=== PATIENT | male | born 1950 | race Caucasian/White ===

== ENCOUNTER 2018-01-03 08:57 | Inpatient (IN) | payer OTHER ==
[~2018-01-03] VITALS: Ht 172.7 cm; Wt 97.5 kg
[~2018-01-03 08:57] MED LIST: ASPIRIN EC81 M1 PO; ATORVASTATIN CA10 MG PO; AVALIDE 12.5 MG1 TAB PO; CLOPIDOGREL75 MG PO; COZAAR 25MG TAB25 MG PO; HEPARIN 2525000 UNI1 IV; HYDRODIURIL 112.5 M1 PO; LEVOTHYROXIN0.125 M1 PO; LISINOPRIL10 MG PO; LOVASTATIN40 M1 PO; LOVASTATIN40 MG PO; MASON NATURAL2000 IU PO; NIFEDIPINE ER30 M2 PO; Nitro-Bid TOP; PLAVIX 75MG TAB75 MG PO; SYNTHROID100 MCG PO; VITAMIN B-122000 MC1 PO; VITAMIN B12100 MC1 PO; VITAMIN B121000 MC1 PO; VITAMIN D1000 IU PO; ZETIA10 M1 PO
[2018-01-03] MEDS ORDERED: COZAAR25 M1 PO (10:41)
[2018-01-03] MEDS ORDERED: COZAAR50 M1 PO (10:42)
[2018-01-03] MEDS ORDERED: VITAMIN D31000 UNI2 PO (10:43)
[2018-01-03] MEDS ORDERED: CLOPIDOGREL75 M1 PO (10:43)
--- NOTE | 2018-01-03 11:06 | ED CARDIAC/CP/PALPITATIONS ---
History of Present Illness General Chief Complaint: General Adult Stated Complaint: LT ARM THROBBING Source: patient, old records Exam Limitations: no limitations Vital Signs & Intake/Output Vital Signs & Intake/Output Vital Signs Date Time Temp Pulse Resp B/P B/P Pulse O2 O2 Flow FiO2 Mean Ox Delivery Rate 01/03 1524 97.4 61 18 137/100 97 01/03 1109 97 Room Air Room Air 01/03 0904 96.4 87 20 146/100 98 Room Air Allergies Coded Allergies: peanut (Severe, ?DIFFICULTY 08/29/16) Reconcile Medications Aspirin (Ecotrin*) 81 MG TABLET.DR 2 TAB PO DAILY HEART HEALTH (Reported) Cholecalciferol (Vitamin D3) 1,000 UNIT TABLET 1 TAB PO DAILY VITAMIN SUPPORT (Reported) Clopidogrel Bisulfate (Clopidogrel) 75 MG TABLET 1 TAB PO DAILY BLOOD THINNER (Reported) Cyanocobalamin (Vitamin B-12) (Vitamin B-12) 2,000 MCG TABLET 1 TAB PO DAILY SUPPLEMENT (Reported) Ezetimibe (Zetia) 10 MG TABLET 1 TAB PO DAILY CHOLESTEROL (Reported) Levothyroxine Sodium (Synthroid) 100 MCG TABLET 1 TAB PO DAILY hypothyroidism Take Synthroid on an empty stomach, 30 minutes before eating Losartan Potassium (Cozaar) 25 MG TABLET 1 TAB PO DAILY heart (Reported) Losartan Potassium (Cozaar) 50 MG TABLET 1 TAB PO QPM HEART (Reported) Lovastatin 40 MG TABLET 1 TAB PO DAILY CHOLESTEROL (Reported) with food Nifedipine (Nifedipine ER) 30 MG TAB.ER.24 1 TAB PO DAILY HEART (Reported) Triage Note: PT TO ED C/O LEFT ARM PAIN SINCE YESTERDAY. DENIES ANY INJURY. DENIES C/P. DECLINING MEDS IN TRIAGE. Triage Nurses Notes Reviewed? yes Onset: Abrupt Duration: constant Timing: recent history Quality/Severity: moderate, aching HPI: Patient is a 67-year-old male with a past medical history significant for coronary artery disease, 2 non-STEMI's, X 4 CARDIAC STENT ON PLAVIX, hypertension, pacemaker placement who presented to emergency room seen at yesterday at approximately 8 AM while taking a shower he had acute onset of left arm persistent pain described as dull and achy in nature and which symptoms still present after 24 hours where he denies any chest pain cough shortness of breath, hemoptysis leg swelling fever chills or neck pain jaw pain diaphoresis light headed sensation nausea or vomiting extremity swelling paresthesia or weakness. Patient is compliant prior to arrival 2, 81 mg of aspirin Patient denies any mechanism of injury or trauma to the left arm Past History Travel History Traveled to [place] past 21 day No Medical History Any Pertinent Medical History? 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 No Review of Systems Review of Systems Constitutional: Reports: no symptoms. EENTM: Reports: no symptoms. Respiratory: Reports: see HPI. Denies: cough, hemoptysis, short of breath. Cardiovascular: Reports: see HPI. Denies: chest pain, edema, peripheral edema. GI: Reports: no symptoms. Genitourinary: Reports: no symptoms. Musculoskeletal: Reports: see HPI, muscle pain. Skin: Reports: no symptoms. Neurological/Psychological: Reports: no symptoms. Hematologic/Endocrine: Reports: no symptoms. Immunologic/Allergic: Reports: no symptoms. All Other Systems: Reviewed and Negative Physical Exam Physical Exam General Appearance: no apparent distress, alert, comfortable Head: atraumatic Eyes: Bilateral: normal appearance. Ears, Nose, Throat: hearing grossly normal Neck: normal inspection, supple Respiratory: normal breath sounds, chest non-tender, no respiratory distress Cardiovascular: regular rate/rhythm Peripheral Pulses: 2+ radial (L) Gastrointestinal: normal bowel sounds, soft, non-tender Rectal: normal exam, normal rectal tone, heme negative stool Extremities: normal inspection, normal capillary refill, normal range of motion Neurologic/Psych: no motor/sensory deficits, awake, alert, oriented x 3, normal gait Skin: intact, normal color, warm/dry Core Measures ACS in differential dx? Yes CVA/TIA Diagnosis No Sepsis Present: No Sepsis Focused Exam Completed? No Progress Differential Diagnosis: AMI, aortic dissection, atrial fibrillation, cholecystitis, CHF/pulm edema, costochondritis, hyperkalemia, hypovolemia, hyperthyroid, hyperventilation, intracranial hemorrhage, musculoskeletal pain, myocarditis, pancreatitis, pericarditis, pneumonia, pneumothorax, PSVT, pulmonary embolism, PUD/GERD, PVCs/PACs, respiratory failure, sepsis, unstable angina, V-fib/V-Tach Plan of Care: Orders Procedure Date/time Status Heart Healthy Diet 01/03 D Active Patient Data 01/03 1534 Active Misc Message 01/03 1456 Active ED Holding Orders 01/03 1456 Active Admit to inpatient 01/03 1456 Active Vital Signs 01/03 1456 Active Code Status 01/03 1456 Active TROPONIN LEVEL 01/03 1430 Complete EKG 01/03 1430 Active Telemetry/Blood Bank Attendant 01/03 1035 Active TROPONIN LEVEL 01/03 1035 Complete CBC WITHOUT DIFFERENTIAL 01/03 1035 Complete BASIC METABOLIC PANEL 01/03 1035 Complete EKG 01/03 0906 Active Current Medications Sig/Mely Start time Last Medication Dose Stop Time Status Admin Heparin Sodium 25,000 UNIT Q24H 01/03 1445 AC (Porcine) (Heparin) Sodium Chloride 500 ML Laboratory Tests 01/03/18 1458: Troponin I < 0.01 01/03/18 1102: Anion Gap 12, Estimated GFR > 60, BUN/Creatinine Ratio 21.0, Glucose 91, Calcium 10.0, Troponin I < 0.01, CBC w Diff NO MAN DIFF REQ, RBC 5.59, MCV 84.6, MCH 28.5, MCHC 33.8, RDW 13.1, MPV 8.1, Gran % 68.3, Lymphocytes % 20.8, Monocytes % 5.9, Eosinophils % 4.1, Basophils % 0.9, Absolute Granulocytes 4.8, Absolute Lymphocytes 1.5, Absolute Monocytes 0.4, Absolute Eosinophils 0.3, Absolute Basophils 0.1 Patient on initial examination was resting comfortably bedside rabbit dresser placed denies any cardiovascular etiology of symptoms complains only of left arm pain. No concerns of DVT or trauma PT INITIAL EKG, TROPONIN AND LABS UNREMARKABLE STILL C/O LEFT ARM 3/[address] Elias who advised patient to be administered nitroglycerin and received second set cardiac enzymes and he advised the patient still has persistent symptoms of left arm pain that patient will be advised to be admitted. After nitroglycerin was administered patient 10 minutes after was reevaluated and states his symptoms have completely resolved, Second TROPONIN AND EKG will be ordered after 3-1/2 hours FROM INITIAL After nitroglycerin was administered patient had exacerbation of his left arm pain Dr. Elias evaluated patient in the emergency room and advised patient to be administered heparin and to be admitted for concerns of ACS Diagnostic Imaging: Viewed by Me: Radiology Read. Radiology Impression: no acute abnormality, no fracture Initial ED EKG: ATRIAL PACED COMPLEX 73 BPM Prior EKG: unchanged Comments: PATIENT: YARON MACKENZIE PRESENT AGE: 67 PATIENT ACCOUNT NO: [id number] : 50 LOCATION: [facility] ORDERING PHYSICIAN: Mick BOOTH SERVICE DATE: 01/03/18 EXAM TYPE: RAD - XRY-CHEST XRAY, TWO VIEWS EXAMINATION: XR CHEST CLINICAL INFORMATION: Angina. COMPARISON: Chest x-ray 05/21/2017 TECHNIQUE: 2 views of the chest were obtained. 2:39 PM FINDINGS: No change in pacemaker lead position in the right atrium and right ventricle. Heart size is normal. The cardiac and mediastinal contours are normal. Lungs are clear. No pulmonary vascular congestion. No pleural effusion or pneumothorax. IMPRESSION: No acute abnormality of chest. DICTATED BY: Keron Bailey MD DATE/TIME DICTATED:01/03/181510 SATELLITE TELEVISION INSTALLER:KALYN DATE/TIME TRANSCRIBED:01/03/181510 Departure Departure Disposition: STILL A PATIENT Condition: Stable Clinical Impression Primary Impression: Angina at rest Secondary Impressions: Arm pain, left Referrals: Mary FELDER,Terry Wilkins (PCP/Family) Departure Forms: Customer Survey General Discharge Information Admission Note Spoke With: Curt FELDER PHD,Dante Cormier Documentation of Exam: Documentation of any treatments & extenuating circumstances including Concerns Regarding Discharge (functional status, medication knowledge or non-compliance, living conditions, etc.) that warrant an admission rather than observation: [ Patient requires telemetry monitoring repeat cardiac enzymes repeat EKG repeat vasodilators possible cardiac catheterization IV heparin for concerns of angina at rest and rule out ACS] Critical Care Note Critical Care Note Critical Care Time: non-applicable
[2018-01-03 11:13] LABS: ABSOLUTE BASOPHIL COUNT 0.1 /CUMM (0.0-0.2); ABSOLUTE EOSINOPHIL COUNT 0.3 /CUMM (0.0-0.7); ABSOLUTE GRANULOCYTE CT 4.8 /CUMM (1.4-6.5); ABSOLUTE LYMPH COUNT 1.5 /CUMM (1.2-3.4); ABSOLUTE MONOCYTE COUNT 0.4 /CUMM (0.10-0.60); BASOPHIL % 0.9 % (0.0-2.0); EOSINOPHIL % 4.1 % (0-5); GRANULOCYTE % 68.3 % (42.2-75.2); HEMATOCRIT 47.2 % (42-52); MEAN CORPUSCULAR HGB 28.5 PG (27.0-31.0); MEAN CORPUSCULAR HGB CONC 33.8 G/DL (33.0-37.0); MEAN CORPUSCULAR VOLUME 84.6 FL (80.0-94.0); MEAN PLATELET VOLUME 8.1 FL (7.4-10.4); PLATELET COUNT 209 /CUMM (130-400); RBC DISTRIBUTION WIDTH 13.1 % (11.5-14.5); RED BLOOD CELL CT 5.59 /CUMM (4.70-6.10); WHITE BLOOD CELL COUNT 7.1 /CUMM (4.8-10.8)
--- NOTE | 2018-01-03 15:16 | RADIOLOGY REPORT ---
EXAMINATION: XR CHEST CLINICAL INFORMATION: Angina. COMPARISON: Chest x-ray 05/21/2017 TECHNIQUE: 2 views of the chest were obtained. 2:39 PM FINDINGS: No change in pacemaker lead position in the right atrium and right ventricle. Heart size is normal. The cardiac and mediastinal contours are normal. Lungs are clear. No pulmonary vascular congestion. No pleural effusion or pneumothorax. IMPRESSION: No acute abnormality of chest.
--- NOTE | 2018-01-03 15:47 | History & Physical ---
Ulices FELDER,Joceline 01/03/18 1547: General Information and HPI MD Statement: I have seen and personally examined YARON MACKENZIE and documented this H&P. The patient is a 67 year old M who presented with a patient stated chief complaint of [left arm pain]. Source of Information: patient, old records Exam Limitations: no limitations History of Present Illness: Patient is a 67-year-old male with past medical history of coronary artery disease status post NSTEMI and 4 stents (2015 - 2 stents, 2016- 2 stents) currently on aspirin and plavix, symptomatic bradycardia s/p pacemaker placement , HTN, ECHO in 2016 showing stage 1 diastolic dysfunction, dyslipidemia, hypothyroidism presenting this admission with left arm pain. Patient states that he has been experiencing left arm pain which started 1 day prior to admission in the morning while he was taking a shower. Patient describes the pain as a persistent dull and aching pain that radiates down his left arm. Patient states the pain is persistent since yesterday which prompted him to come to the emergency room today. Patient notes that the pain when it first started was an 8 out of 10 in severity. Patient did not try taking any medication to relieve the pain. Patient notes that the pain today was 3 out of 10 in severity and was relieved by nitroglycerin in the ED. Patient denies any chest pain, pain radiating to neck or back. Denies diaphoresis, nausea/vomiting , shortness of breath, lower extremity swelling, fever/chills, lightheadedness or dizziness. Patient states that he has had this type of pain in the past in 2014 when he was admitted for an NSTEMI and had 2 stents placed and in 2016 also for an STEMI and additional 2 stents placed at [facility]. Patient also notes that he had a pacemaker placed in 2016 for symptomatic bradycardia. Patient's primary care is Dr. Hernandez. Patient's voice pathologist is Dr. Elias with whom he had his 6 month follow-up on 01/07. In the ED patient received nitroglycerin 0.4 mg sublingual 1 and was started on IV heparin drip Allergies/Medications Allergies: Coded Allergies: peanut (Severe, ?DIFFICULTY 08/29/16) Home Med list Aspirin (Ecotrin*) 81 MG TABLET.DR 2 TAB PO DAILY HEART HEALTH (Reported) Cholecalciferol (Vitamin D3) 1,000 UNIT TABLET 1 TAB PO DAILY VITAMIN SUPPORT (Reported) Clopidogrel Bisulfate (Clopidogrel) 75 MG TABLET 1 TAB PO DAILY BLOOD THINNER (Reported) Cyanocobalamin (Vitamin B-12) (Vitamin B-12) 2,000 MCG TABLET 1 TAB PO DAILY SUPPLEMENT (Reported) Ezetimibe (Zetia) 10 MG TABLET 1 TAB PO DAILY CHOLESTEROL (Reported) Levothyroxine Sodium (Synthroid) 100 MCG TABLET 1 TAB PO DAILY hypothyroidism Take Synthroid on an empty stomach, 30 minutes before eating Losartan Potassium (Cozaar) 25 MG TABLET 1 TAB PO DAILY heart (Reported) Losartan Potassium (Cozaar) 50 MG TABLET 1 TAB PO QPM HEART (Reported) Lovastatin 40 MG TABLET 1 TAB PO DAILY CHOLESTEROL (Reported) with food Nifedipine (Nifedipine ER) 30 MG TAB.ER.24 1 TAB PO DAILY HEART (Reported) Past History Travel History Traveled to [place] past 21 day No Medical History Neurological: NONE EENT: NONE Cardiovascular: hypertension, hyperlipidemia, NSTEMI X 2 bradycardia PACEMAKER CARDIAC STENTS X 4 Respiratory: NONE Gastrointestinal: NONE Hepatic: NONE Renal: NONE Musculoskeletal: NONE Psychiatric: NONE Endocrine: hypothyroidism Blood Disorders: NONE Cancer(s): NONE 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 spouse Services at Home: None Primary Language: Japanese ETOH Use: denies use Illicit Drug Use: denies illicit drug use Living Will? no Power of Cylinder Honer/HCP? no Functional Ability ADLs Independent: dressing, eating, toileting, bathing. Ambulation: independent IADLs Independent: shopping, housework, finances, food prep, telephone, transportation , medication admin. Review of Systems Review of Systems Constitutional: Reports: no symptoms. Cardiovascular: Reports: see HPI. Respiratory: Reports: no symptoms. GI: Reports: no symptoms. Genitourinary: Reports: no symptoms. Musculoskeletal: Reports: no symptoms. Skin: Reports: no symptoms. Neurological/Psychological: Reports: no symptoms. Hematologic/Endocrine: Reports: no symptoms. Immunologic/Allergic: Reports: no symptoms. Exam & Diagnostic Data Last 24 Hrs of Vital Signs/I&O Vital Signs Date Time Temp Pulse Resp B/P B/P Pulse O2 O2 Flow FiO2 Mean Ox Delivery Rate 01/03 1524 97.4 61 18 137/100 97 01/03 1109 97 Room Air Room Air 01/03 0904 96.4 87 20 146/100 98 Room Air Intake & Output 01/03 1600 01/03 0800 01/03 0000 Intake Total Output Total Balance Patient 215 lb Weight Weight Reported by Patient Measurement Method Physical Exam General Appearance Alert, Oriented X3, Cooperative, No Acute Distress Skin Temp/Moisture Exam: Warm/Dry HEENT Atraumatic, PERRLA, EOMI, Mucous Membr. moist/pink Cardiovascular Regular Rate, Normal S1, Normal S2 Lungs Clear to Auscultation, Normal Air Movement Abdomen Normal Bowel Sounds, Soft, No Tenderness Neurological Normal Gait, Normal Speech, Cranial Nerves 3-12 NL Extremities No Clubbing, No Cyanosis, No Edema, Normal Pulses, No Tenderness/ Swelling Last 24 Hrs of Labs/Koby: Laboratory Tests 01/03/18 1458: Troponin I < 0.01 01/03/18 1102: Anion Gap 12, Estimated GFR > 60, BUN/Creatinine Ratio 21.0, Glucose 91, Calcium 10.0, Troponin I < 0.01, CBC w Diff NO MAN DIFF REQ, RBC 5.59, MCV 84.6, MCH 28.5, MCHC 33.8, RDW 13.1, MPV 8.1, Gran % 68.3, Lymphocytes % 20.8, Monocytes % 5.9, Eosinophils % 4.1, Basophils % 0.9, Absolute Granulocytes 4.8, Absolute Lymphocytes 1.5, Absolute Monocytes 0.4, Absolute Eosinophils 0.3, Absolute Basophils 0.1 Diagnostic Data EKG Results Atrial-paced with HR: 72, LAD, 1st degree AV Block, Qtc: 449 CXR Results No acute pathology. Assessment/Plan Assessment: Patient is a 67-year-old male with past medical history of coronary artery disease status post NSTEMI and 4 stents (2015 - 2 stents, 2016- 2 stents) currently on aspirin and plavix, symptomatic bradycardia s/p pacemaker placement , HTN, ECHO in 2016 showing stage 1 diastolic dysfunction, dyslipidemia, hypothyroidism presenting this admission with left arm pain. Will be admitted to telemetry for management of followin. Unstable angina Patient has an extensive cardiac history with multiple MIs in the past requiring 4 stents and history of symptomatic bradycardia requiring pacemaker placement. - Will admit to telemetry - Started on IV heparin drip - Serial EKG and troponins - Nitroglycerin patch were pain - Oxygen supplementation as needed - Continue aspirin and Plavix - Continue atorvastatin - Cardiology is on board. We'll continue to follow recommendations 2. History of hypertension - Continue losartan and nifedipine 3. History of hypothyroidism - Continue levothyroxine DVT prophylaxis: On IV heparin Code: Full code Diet: Heart healthy diet As Ranked By This Provider Problem List: 1. Arm pain, left 2. Angina at rest Core Measures/Misc (07/29) Acute Coronary Syndrome ACS Diagnosis: No Congestive Heart Failure Congestive Heart Failure Diagnosis No Cerebrovascular Accident CVA/TIA Diagnosis: No VTE (View Protocol) VTE Risk Factors Age>40 No Mechanical VTE Prophylaxis d/t N/A MechProphylax Ordered No VTE Pharm Prophylaxis d/t NA PharmProphylax ordered Sepsis (View protocol) Sepsis Present: No Thomas Sanders 01/03/18 1701: Resident Review Statement Resident Statement: examined this patient, discussed with supply chain intern, agreed with supply chain intern, discussed with family, reviewed EMR data (avail), discussed with nursing , discussed with case mgmt, reviewed images, amended to note Other Findings: This is a 67-year-old male with past medical history significant for coronary artery disease, NSTEMI, 4 stents placement, on aspirin and Plavix, sinus sick syndrome, bradycardia status post pacemaker placement in 07/2015, hypothyroidism, hypertension presented to ED for evaluation of chest pain. Patient reports left-sided chest pain, left arm pain since last evening. He thought it might come down. He reports left arm pain, 3 out of 10, nonradiating , sharp, not associated with any shortness of breath, palpitations, nausea, vomiting, diaphoresis. He continued to have left arm pain even this morning, which prompted him to come to the emergency room. Review of systems negative for any fever, productive cough, chills, palpitations , chest pain, nausea, vomiting, abdominal pain, change in bladder or bowel habits. His only complaint in the emergency room is left arm pain, subsided with nitroglycerin tablet. Of note patient has extensive cardiac history, had heart attack in 2014 with EKG changes, cardiac cath Status post 2 stents placement. Again he had one heart attack in 2016, transferred to [facility] for cardiac cath and stent placement. Echocardiogram in August 2016 showed normal ejection fraction and stage I diastolic dysfunction. Patient reports sick sinus syndrome and bradycardia in 2014, status post pacemaker placement by Dr. Elias. He never smoked, denied alcohol abuse, illicit drug abuse. He follows up with PCP and voice pathologist regularly. He is independent of all his activities. Vitals within normal limits Exam within normal limits Lab CBCs and BP normal. 2 sets of troponin normal. Chest x-ray within normal limits EKG showed atrial paced rhythm, left axis deviation 1. Chest pain/unstable angina patient has extensive cardiac history, had heart attack in 2014 with EKG changes , cardiac cath Status post 2 stents placement. Again he had one heart attack in 2015, transferred to [facility] for cardiac cath and stent placement. Echocardiogram in August 2016 showed normal ejection fraction and stage I diastolic dysfunction. Patient reports sick sinus syndrome and bradycardia in 2014, status post pacemaker placement by Dr. Elias. Patient now presented with chest pain. Resolved with nitroglycerin. Vitals, labs normal he is hemodynamically stable * Admit to telemetry for further monitoring * Continuous telemetry monitoring * monitor vitals every shift * Renal troponin and EKG * Continue IV heparin drip * Nitroglycerin patch daily * Continue aspirin, Plavix * Continue statin * Follow cardiology recommendations Hypothyroidism continue levothyroxine Hypertension continue losartan and nifedipine He is full code DVT prophylaxis on IV heparin Heart healthy diet
--- NOTE | 2018-01-03 18:06 | Cons- Cardiology ---
General Information and HPI Consulting Request Date of Consult: 01/03/18 Requested By: Curt FELDER PHD,Dante Cormier History of Present Illness: Jb is a 67 year old male with history of hypertension, dyslipidemia and coronary artery disease s/p IL with PCI to his LAD and OM. He is also s/p a permanent pacemaker for symptomatic bradycardia. Today, Jb noted a left arm paresthesia and discomfort that was very similar, but perhaps less intense, to the discomfort he had at the time of his IL. There was equivocal exacerbation with activity and no complete relief with rest. He did feel that NTG, given in the ER, helped. There is no associated nausea, vomiting or diaphoresis. He also denies shortness of breath, lightheadedness or palpitations. Despite prolonged pain, his first set of cardiac enzymes are normal and his ECG is unchanged. At baseline, on rare occasion Jb will experience some shortness of breath lying down which improves with an inhaler. Her otherwise denies any chest discomfort, lightheadedness or palpitations and is an active individual. A stress test showed an EF of 47% with mild inferior wall hypokinesis and a small partial fixed inferior defect but no ischemia. His pacemaker is serving him well and his headaches have resolved. To review this patient's prior cardiac history, Jb had been doing well in general, except for bradycardia, and he was anticipating a pacemaker for symptomatic bradycardia. We stopped his Plavix in anticipation of this procedure and after a week off this medication he noted a moderate chest pressure radiating to his right arm associated with shortness of breath, nausea and lightheadedness. He did rule in for a NSTEMI. We therefore transferred him to the [facility] where a cardiac catheterization disclosed a patent LAD and LCX but his RCA, which is a dominant vessel, had a severe stenosis with thrombus. He received two bare metal 2.5mm Integrity stents to the distal RCA and posterolateral branch and had thrombus extraction. He was placed on Integrelin and did well. He continued to display evidence of bradycardia however. During his hospital follow up he had no chest discomfort but did have T wave inversions in the inferior and lateral leads that were unchanged from when he was a the HSR. Jb is now s/p a [employer] MRI safe dual chamber permanent pacemaker placement. A pacemaker interogation showed an atrial paced rhythm. Allergies/Medications Allergies: Coded Allergies: peanut (Severe, ?DIFFICULTY 08/29/16) Home Med List: Aspirin (Ecotrin*) 81 MG TABLET.DR 2 TAB PO DAILY HEART HEALTH (Reported) Cholecalciferol (Vitamin D3) 1,000 UNIT TABLET 1 TAB PO DAILY VITAMIN SUPPORT (Reported) Clopidogrel Bisulfate (Clopidogrel) 75 MG TABLET 1 TAB PO DAILY BLOOD THINNER (Reported) Cyanocobalamin (Vitamin B-12) (Vitamin B-12) 2,000 MCG TABLET 1 TAB PO DAILY SUPPLEMENT (Reported) Ezetimibe (Zetia) 10 MG TABLET 1 TAB PO DAILY CHOLESTEROL (Reported) Levothyroxine Sodium (Synthroid) 100 MCG TABLET 1 TAB PO DAILY hypothyroidism Take Synthroid on an empty stomach, 30 minutes before eating Losartan Potassium (Cozaar) 25 MG TABLET 1 TAB PO DAILY heart (Reported) Losartan Potassium (Cozaar) 50 MG TABLET 1 TAB PO QPM HEART (Reported) Lovastatin 40 MG TABLET 1 TAB PO DAILY CHOLESTEROL (Reported) with food Nifedipine (Nifedipine ER) 30 MG TAB.ER.24 1 TAB PO DAILY HEART (Reported) Review of Systems Review of Systems: A 12 point review of systems is unremarkable. Past History Travel History Traveled to [place] past 21 day No Medical History Neurological: NONE EENT: NONE Cardiovascular: hypertension, hyperlipidemia, NSTEMI X 2 bradycardia PACEMAKER CARDIAC STENTS X 4, pacemaker for symptomatic bradycardia Respiratory: NONE Gastrointestinal: NONE Hepatic: NONE Renal: NONE Musculoskeletal: NONE Psychiatric: NONE Endocrine: hypothyroidism Blood Disorders: NONE Cancer(s): NONE SPECIALTIES OPERATOR/Reproductive: NONE Surgical History Surgical History: ROTATOR CUFF pacemaker cardiac stents Family History Relations & Conditions If Any: BROTHER Relation not specified for: FH: heart disease Family History Reviewed? Brother at 50 during heart surgery Psychosocial History Who Do You Live With? spouse Services at Home: None Primary Language: Frisian ETOH Use: heavy use Illicit Drug Use: denies illicit drug use Living Will? no Power of Plant Hr Manager/HCP? no Functional Ability ADLs Independent: dressing, eating, toileting, bathing. Ambulation: independent IADLs Independent: shopping, housework, finances, food prep, telephone, transportation , medication admin. Exam & Diagnostic Data Vital Signs and I&O Vital Signs Date Time Temp Pulse Resp B/P B/P Pulse O2 O2 Flow FiO2 Mean Ox Delivery Rate 01/03 1735 97.8 62 16 136/96 100 Room Air 01/03 1524 97.4 61 18 137/100 97 01/03 1109 97 Room Air Room Air 01/03 0904 96.4 87 20 146/100 98 Room Air Intake & Output 01/03 1600 01/03 0800 01/03 0000 01/02 1600 01/02 0800 01/02 0000 Intake Total Output Total Balance Patient 215 lb Weight Weight Reported by Patient Measurement Method Physical Exam: General: WD/WN male in NAD; alert and oriented x 3 HEENT: NC/AT, PERRL, EOMI Neck: no JVD, no carotid bruit Heart: RRR w/o murmur Lungs: clear bilaterally Abdomen: soft, NT, +ve bowel sounds Extremities: no edema Assessment/Plan Assessment/Plan * This patient has noted a prolonged episode of left arm discomfort that is very reminiscent of the discomfort he had during his IL. There is perhaps some exertional component to it and clear relief with NTG. We will treat as unstable angina and ruled out for an IL although a musculoskeletal pain cannot be excluded. Continue aspirin and Plavix and begin IV heparin. * Follow three sets of cardiac enzymes. * Will risk stratify with a treadmill nuclear stress test in the morning. Consult Acknowledgment - Thank you for your consult request.
[2018-01-03 19:45] VITALS: BP 168/100
[2018-01-03 23:02] VITALS: BP 164/84
[2018-01-04] VITALS: BP 140/94
[2018-01-04 02:34] LABS: PTT 65 SEC (25-37)
[2018-01-04 07:01] VITALS: BP 156/94
--- NOTE | 2018-01-04 08:10 | PN- Housestaff ---
Subjective Follow-up For: Left arm pain Subjective: Patient was seen and examined today. Patient denies any chest pain, arm pain, n/ v, diaphoresis, palpitations, dizziness, lightheadedness. Patient states he has been walking around with no discomfort or return of the pain. No acute events overnight. Review of Systems Constitutional: Reports: no symptoms. Objective Last 24 Hrs of Vital Signs/I&O Vital Signs Date Time Temp Pulse Resp B/P B/P Pulse O2 O2 Flow FiO2 Mean Ox Delivery Rate 01/04 0946 74 150/90 01/04 0944 70 150/90 01/04 0701 98.6 63 18 156/94 96 Room Air 01/04 0000 72 140/94 01/03 2302 97.8 65 18 164/84 98 Room Air 01/03 2047 Room Air 01/03 2039 71 178/110 01/03 1945 98.0 66 16 168/100 99 Room Air 01/03 1735 97.8 62 16 136/96 100 Room Air 01/03 1524 97.4 61 18 137/100 97 Intake & Output 01/04 1600 01/04 0800 01/04 0000 Intake Total 460 400 Output Total Balance 460 400 Intake, IV 160 Intake, Oral 300 400 Patient 215 lb Weight Weight Reported by Patient Measurement Method Physical Exam General Appearance: Alert, Oriented X3, Cooperative, No Acute Distress Skin Temp/Moisture Exam: Warm/Dry HEENT: Atraumatic, PERRLA, EOMI, Mucous Membr. moist/pink Cardiovascular: Regular Rate, Normal S1, Normal S2, No Murmurs Lungs: Clear to Auscultation, Normal Air Movement Abdomen: Normal Bowel Sounds, Soft, No Tenderness Neurological: Normal Gait, Normal Speech, Cranial Nerves 3-12 NL Extremities: No Clubbing, No Cyanosis, No Edema, Normal Pulses, No Tenderness/ Swelling Current Medications: Current Medications Sig/Mely Start time Last Medication Dose Route Stop Time Status Admin Acetaminophen 650 MG Q6P PRN 01/03 1630 DCD PO Aspirin Buffered 162 MG DAILY 01/04 1000 DCD 01/04 PO 0943 Atorvastatin Calcium 40 MG 1700 01/03 1700 DCD PO Cholecalciferol 1,000 IU DAILY 01/03 161 DCD 01/04 PO 0943 Clopidogrel Bisulfate 0 .STK-MED ONE 01/03 1815 DC PO Clopidogrel Bisulfate 75 MG DAILY 01/03 1619 DCD 01/04 PO 0943 Cyanocobalamin 1,000 MCG DAILY 01/03 1620 DCD 01/04 PO 0943 Ezetimibe 10 MG DAILY 01/03 1620 DCD 01/04 PO 0943 Heparin Sodium 3,000 UNIT ONCE ONE 01/04 1310 DC 01/04 (Porcine) IV 01/04 1311 1310 Heparin Sodium 0 .STK-MED ONE 01/03 1815 DC (Porcine) .ROUTE Heparin Sodium 25,000 UNIT Q24H 01/03 1445 DCD 01/03 (Porcine) IV 1818 Sodium Chloride 500 ML Levothyroxine Sodium 0.1 MG DAILY AC 01/04 0700 DCD 01/04 PO 0545 Losartan Potassium 50 MG QAM 01/04 1000 DCD 01/04 PO 0944 Losartan Potassium 25 MG QPM 01/03 2200 DCD 01/03 PO 2039 Nifedipine 30 MG DAILY 01/04 1000 DCD 01/04 PO 0946 Nitroglycerin 0.4 MG DAILY 01/03 1715 DCD 01/04 TOP 0943 Patient Medication 1 ED ONE ONE 01/04 1415 MN Teaching ED 01/04 1416 Last 24 Hrs of Lab/Koby Results Last 24 Hrs of Labs/Mics: Laboratory Tests 01/04/18 1220: APTT 60 H 01/04/18 0610: Anion Gap 10, Estimated GFR > 60, BUN/Creatinine Ratio 20.0, CBC w Diff NO MAN DIFF REQ, RBC 4.94, MCV 84.2, MCH 28.7, MCHC 34.1, RDW 13.7, MPV 8.5, Gran % 61.8, Lymphocytes % 25.4, Monocytes % 6.8, Eosinophils % 5.4 H, Basophils % 0.6 , Absolute Granulocytes 4.2, Absolute Lymphocytes 1.7, Absolute Monocytes 0.5, Absolute Eosinophils 0.4, Absolute Basophils 0 01/04/18 0030: APTT 65 H 01/03/18 2100: Troponin I < 0.01 01/03/18 1458: Troponin I < 0.01 Assessment/Plan Assessment: Patient is a 67-year-old male with past medical history of coronary artery disease status post NSTEMI and 4 stents (2015 - 2 stents, 2016- 2 stents) currently on aspirin and plavix, symptomatic bradycardia s/p pacemaker placement , HTN, ECHO in 2016 showing stage 1 diastolic dysfunction, dyslipidemia, hypothyroidism presenting this admission with left arm pain. Patient's arm pain has resolved today. Patient is currently asymptomatic. Patient's EKG and trops have been negative x3 and he has had no events on the tele monitor. Patient seen by Dr. Elias. He will be discharged home today to follow up closely with Dr. Elias for an outpatient stress test. Patient was given nitroglycerin to be filled if he has recurrent arm pain or chest pain. Will be admitted to telemetry for management of followin. Unstable angina Patient has an extensive cardiac history with multiple MIs in the past requiring 4 stents and history of symptomatic bradycardia requiring pacemaker placement. - Will admit to telemetry - Started on IV heparin drip - Serial EKG and troponins - Nitroglycerin patch were pain - Oxygen supplementation as needed - Continue aspirin and Plavix - Continue atorvastatin - Cardiology is on board. We'll continue to follow recommendations 2. History of hypertension - Continue losartan and nifedipine 3. History of hypothyroidism - Continue levothyroxine DVT prophylaxis: On IV heparin - discontinued today Code: Full code Diet: Heart healthy diet Dispo: discharge home today to follow up with Dr. Elias for outpatient stress test Problem List: 1. Arm pain, left Pain Ratin Pain Location: left arm Pain Goal: Remain pain free Pain Plan: nitroglycerin PRN Tomorrow's Labs & Rationales: none - discharge today
[2018-01-04 08:17] LABS: ABSOLUTE BASOPHIL COUNT 0 /CUMM (0.0-0.2); BASOPHIL % 0.6 % (0.0-2.0)
[2018-01-04 08:44] LABS: ABSOLUTE EOSINOPHIL COUNT 0.4 /CUMM (0.0-0.7); ABSOLUTE GRANULOCYTE CT 4.2 /CUMM (1.4-6.5); ABSOLUTE LYMPH COUNT 1.7 /CUMM (1.2-3.4); ABSOLUTE MONOCYTE COUNT 0.5 /CUMM (0.10-0.60); EOSINOPHIL % 5.4 % (0-5); GRANULOCYTE % 61.8 % (42.2-75.2); MEAN CORPUSCULAR HGB 28.7 PG (27.0-31.0); MEAN CORPUSCULAR HGB CONC 34.1 G/DL (33.0-37.0); MEAN CORPUSCULAR VOLUME 84.2 FL (80.0-94.0); MEAN PLATELET VOLUME 8.5 FL (7.4-10.4); PLATELET COUNT 193 /CUMM (130-400); RBC DISTRIBUTION WIDTH 13.7 % (11.5-14.5); RED BLOOD CELL CT 4.94 /CUMM (4.70-6.10); WHITE BLOOD CELL COUNT 6.8 /CUMM (4.8-10.8)
[2018-01-04 08:49] LABS: HEMATOCRIT 41.6 % (42-52)
[2018-01-04 13:04] LABS: PTT 60 SEC (25-37)
[2018-01-04 14:28] VITALS: BP 120/84
--- NOTE | 2018-01-04 15:00 | Patient Discharge Instructions ---
Discharge Instructions General Discharge Information You were seen/treated for: Left arm discomfort evaluated for coronary disease Special Instructions: 1. 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 Please take the medication as advised 3. You will need a treadmill nuclear stress test to further classify coronary artery disease. 4. You have been given a script for nitroglycerin patch. Please fill if you have chest pain. Diet Recommended Diet: Heart Healthy Activity Full Activity/No Limits: No Activity Self Limited: Yes Acute Coronary Syndrome Inclusion Criteria At DC or during hospital stay patient has or had the following: ACS DIAGNOSIS No Discharge Core Measures Meds if any: Prescribed or Continued at Discharge Meds if any: NOT Prescribed or Continued at Discharge Congestive Heart Failure Inclusion Criteria At DC or during hospital stay patient has or had the following: CHF DIAGNOSIS No Discharge Core Measures Meds if any: Prescribed or Continued at Discharge Meds if any: NOT Prescribed or Continued at Discharge Cerebrovascular accident Inclusion Criteria At DC or during hospital stay patient has or had the following: CVA/TIA Diagnosis No Discharge Core Measures Meds if any: Prescribed or Continued at Discharge Meds if any: NOT Prescribed or Continued at Discharge Venous thromboembolism Inclusion Criteria VTE Diagnosis No VTE Type NONE VTE Confirmed by (Test) NONE Discharge Core Measures - Per Current guidelines, there needs to be overlap - treatment for the first 5 days of Warfarin therapy. - If discharged on Warfarin prior to 5 days of - overlap therapy, the patient will need to be - assessed for post discharge needs including - *Post discharge parental anticoagulation - *Warfarin and/or parental anticoagulation education - *Follow up date to check INR post discharge At least 5 days overlap therapy as Inpatient No Meds if any: Prescribed or Continued at Discharge Note: Overlap Therapy is Warfarin and Anticoagulant Meds if any: NOT Prescribed or Continued at Discharge
[2018-01-04] MEDS ORDERED: NITROGLYCERIN1 EACH TP (16:03)
--- NOTE | 2018-01-04 17:59 | PN- Cardiology ---
Subjective Subjective: * Patient reports complete resolution of his arm discomfort. He ambulated without symptoms. * Normal cardiac enzymes. * sinus rhythm. Objective Vital Signs and I&Os Vital Signs Date Time Temp Pulse Resp B/P B/P Pulse O2 O2 Flow FiO2 Mean Ox Delivery Rate 01/04 1428 97.6 63 18 120/84 97 01/04 0946 74 150/90 01/04 0944 70 150/90 01/04 0701 98.6 63 18 156/94 96 Room Air 01/04 0000 72 140/94 01/03 2302 97.8 65 18 164/84 98 Room Air 01/03 2047 Room Air 01/039 71 178/110 01/03 1945 98.0 66 16 168/100 99 Room Air Intake & Output 01/04 1600 01/04 0800 01/04 0000 01/03 1600 01/03 0800 01/03 0000 Intake Total 760 460 400 Output Total Balance 760 460 400 Intake, IV 160 160 Intake, Oral 600 300 400 Patient 215 lb 215 lb Weight Weight Reported by Patient Reported by Patient Measurement Method Physical Exam: General: WD/WN male in NAD; alert and oriented x 3 Neck: no JVD, no carotid bruit Heart: RRR w/o murmur Lungs: clear bilaterally Extremities: no edema Assessment/Plan Assessment/Plan * This patient has noted a prolonged episode of left arm discomfort that is very reminiscent of the discomfort he had during his ME. Fortunately this dicomfort resolved and he has ruled out for an ME. A stress test could not be obtained today. Since the patient is doing better and ruled out for an ACS we will discharge his to home with a plan for outpatient stress test. In addition to his usual home medications he has a prescription for a NTG patch that he only needs to fill if he has recurrent chest pain. Continue aspirin and Plavix. Continue telemetry? Yes
== END 2018-01-04 16:37 | DRG 303 ==
LOC: ERH 08:57 → ERHI 14:56 → 1NO 14:56 → ENRESERV 16:02 → ENTRNSPT 18:25 → EDTRNSPT 18:33 → EDTRNSPTSTS 18:33 → 1NO 18:50 → CMPTRNSPT 19:02 → 1NO 01-04 08:59
PROVIDERS: Hospitalist; Internal Medicine Interventional Cardiology; Physician Assistant
DX: I25.110 Atherosclerotic heart disease of native coronary artery with unstable angina pectoris (principal); E03.9 Hypothyroidism, unspecified; I25.2 Old myocardial infarction; E78.5 Hyperlipidemia, unspecified; I10 Essential (primary) hypertension; Z95.5 Presence of coronary angioplasty implant and graft; Z95.0 Presence of cardiac pacemaker
CPT/HCPCS: 1NSP; 36415; 71046; 82436; 93005; 93010; J1644; J3490